=== PATIENT | male | born 1975 | race Caucasian/White ===

== ENCOUNTER 2022-03-20 10:40 | Emergency (ER) | payer OTHER, SELFPAY ==
[2022-03-20] VITALS (31 sets, daily range): BP systolic 146–162; BP diastolic 95–101; PULSE 70–80; RESP 12–24; TEMP 36.4–36.7; O2SAT 98–100
--- NOTE | 2022-03-20 10:45 | DI.RAD_ITS ---
Exam(s) XR WRIST LT COMPLETE EXAM: XR WRIST LT COMPLETE CLINICAL HISTORY: pain. TECHNIQUE: 2D digital imaging was performed. Three views. COMPARISON: No exams were available for comparison FINDINGS: Dislocation of the lunate ventrally as well as ventral rotation of 90 degrees. There remaining carpa l alignment is normal. There is a tiny fracture fragment at the ulnar styloid is well as a few tiny 5 fracture fragments near the radial styloid. No carpal fractures are visible. Diffuse soft tissue swelling is seen around the wrist. IMPRESSION: Ventral lunate dislocation. Small fracture fragments at the ulnar side and radial styloids. DATA REPOSITORY: RADIATION DOSE DELIVERED:
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
--- NOTE | 2022-03-20 11:45 | DI.RAD_ITS ---
Exam(s) XR FLOURO OR C-ARM <1 HR EXAM: XR FLOURO OR C-ARM <1 HR CLINICAL HISTORY: lunate dislocation. TECHNIQUE: 2D and realtime digital imaging was performed. COMPARISON: CR,XR XR WRIST LT COMPLETE from 03/20/2022 FINDINGS: Please see procedure note for details. Fluoro time: 39.4seconds RADIATION DOSE DELIVERED: Santoshr= 0.61 mGy
[2022-03-20] MEDS: Propofol 200 MG/20 ML VIAL 90 MG IVP ×5 (12:34→12:43)
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
--- NOTE | 2022-03-20 19:21 | RESPIRATORY ---
1215 RT present for conscious sedation with Orthopedic Surgeon and ED Attending. Pt placed on 2L NC with ETCO2 monitoring. Suction and manual resuscitator at head of bed. Patient maintained adequate SpO2 and respiratory status throughout procedure. Pt recovered and was speaking in full sentences within 5 minutes of completion of procedure. Supplemental O2 was removed and pt recovered without any adverse effects.
== END 2022-03-20 15:45 | disposition left against medical advice (07) ==
PROVIDERS: Emergency Provider Emergency Medicine
DX: S63.095A Other dislocation of left wrist and hand, initial encounter (principal); Z53.20 Procedure and treatment not carried out because of patient's decision for unspecified reasons; V18.0XXA Pedal cycle driver injured in noncollision transport accident in nontraffic accident, initial encounter; Y93.55 Activity, bike riding; Y92.828 Other wilderness area as the place of occurrence of the external cause
CPT/HCPCS: 25690; 76000; 96360; 96361; 99285; 73110; 99284; J2704